=== PATIENT | male | born 2000 | race Two or more races ===

== ENCOUNTER 2022-05-28 11:17 | Emergency (ER) | payer OTHER ==
[~2022-05-28] VITALS: Ht 193 cm; Wt 92.1 kg
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
[2022-05-28] MEDS ORDERED: IBUP-1957 PO (12:43)
[2022-05-28 12:48] VITALS: BP 129/77
== END 2022-05-28 12:48 | disposition home or self-care (01) ==
LOC: ER 11:17
DX: R51.9 Headache, unspecified (principal); R07.89 Other chest pain; Z79.1 Long term (current) use of non-steroidal anti-inflammatories (NSAID)
CPT/HCPCS: 70450-TC; 71045-TC